=== PATIENT | male | born 1965 | race Caucasian/White ===

== ENCOUNTER 2017-07-07 08:07 | Day surgery (SDC) | payer BC ==
[~2017-07-07] VITALS: Ht 180.3 cm; Wt 95.3 kg
[~2017-07-07 08:07] MED LIST: TRAZ-28 PO
[2017-07-07 08:27] VITALS: BP 103/82
--- OUTSIDE RECORDS SUMMARY | 2017-07-07 08:27 | XMS REPORT ---
Author Author PIERRE DIAZ [facility] e[employer] Address Unknown Phone Unavailable Care Team Providers Care Laundry Agent Name Role Phone PIERRE DIAZ Unavailable Allergies No Known Allergies Problems Problem Type Condition Code Onset Dates Condition Status Problem Acute sinusitis, unspecified 461.9 Active Problem Dysfunction of Eustachian tube 381.81 Active Problem Need for prophylactic vaccination and inoculation, Influenza V04.81 Active Assessment Encounter for immunization Z23 Active Medications No Known Medications Procedures Procedure Coding System Code Date SINGLE IMMUNIZATION ADMIN CPT-4 24653 Jul 04, 2016 FLUARIX QUAD P-FREE 3 AND UP .50 2015 CPT-4 25945 Jul 04, 2016 Results No Known Results Immunizations Vaccine Administration Date FLUARIX QUAD P-FREE 3 AND UP .50 2015Jul 04, 2016 Summary Purpose eClinicalWorks Submission
--- OUTSIDE RECORDS SUMMARY | 2017-07-07 08:27 | XMS REPORT | Continuity of Care Document ---
Author Author Formerly [facility] Address Unknown Phone Unavailable Allergies Medications Problems Date Dx Coded Attending Type Code Diagnosis Diagnosed By 12/06/2013 EMILY NAVARRO PIERRE A 461.9 SINUSITIS ACUTE 12/06/2013 [employer] OFFICER, PIERRE A 461.9 SINUSITIS ACUTE 12/06/2013 [employer]JTUE [employer] RESOURCE OFFICER, PIERRE A 461.9 SINUSITIS ACUTE 06/15/2014 EMILY COMMUNITY RESOURCE OFFICER, PIERRE A 381.81 EUSTACHIAN TUBE DYSFUNCTION 06/15/2014 [employer]JTUE COMM[employer] RESOURCE OFFICER, PIERRE A 381.81 EUSTACHIAN TUBE DYSFUNCTION 06/27/2014 YASMANY DIAZ APRNYL A V04.81 FLU SHOT Procedures [place] [address] THERAPUTIC INJ SQ/IM 12/06/2013 J1040 DEPO MEDROL 80 MG INJ 12/06/2013 89083 THERAPUTIC INJ SQ/IM 06/15/2014 J1040 DEPO MEDROL 80 MG INJ 06/15/2014 Results Encounters ACCT No. Visit Date/Time Discharge Status Pt. Type Provider Facility Loc./Unit Complaint [id number] 06/27/2014 15:51:00 06/27/2014 23: 59:59 CLS Outpatient PIERRE DIAZ APRN [id number] 06/15/2014 10:05:00 06/15/2014 23: 59:59 CLS Outpatient PIERRE DIAZ APRN [id number] 12/06/2013 13:21:00 12/06/2013 23: 59:59 CLS Outpatient PIERRE DIAZ APRN
--- OUTSIDE RECORDS SUMMARY | 2017-07-07 08:27 | XMS REPORT ---
Author Author PIERRE DIAZ Organization [employer] Address Unknown Phone Unavailable Care Team Providers Care Manager Lean Name Role Phone PIERRE DIAZ CP Unavailable Allergies No Known Allergies Problems Problem Type Condition Code Onset Dates Condition Status Problem Acute sinusitis, unspecified 461.9 Active Problem Dysfunction of Eustachian tube 381.81 Active Problem Need for prophylactic vaccination and inoculation, Influenza V04.81 Active Assessment Encounter for immunization Z23 Active Medications No Known Medications Procedures Procedure Coding System Code Date SINGLE IMMUNIZATION ADMIN CPT-4 64807 Aug 29, 2015 FLUARIX QUAD (3 & UP)-GSK-2014 CPT-4 15402 Aug 29, 2015 Results No Known Results Immunizations Vaccine Administration Date FLUARIX QUAD (3 & UP)-GSK-2014Aug 29, 2015 Summary Purpose eClinicalWorks Submission
[2017-07-07] MEDS ORDERED: NS IV 500 ML 500 ML IV PRN (08:30)
--- NOTE | 2017-07-07 09:58 | History & Physicial ---
History of Present Illness History of Present Illness Reason for visit/HPI Patient is seen today in no acute distress for a screening colonoscopy. Patient states that this is his first colonoscopy. Patient has a negative family history for colon cancer. Patient denies blood in his stool as well as change in his stool caliber. The procedure was described in detail and the patient agreed to the procedure. Date of Admission Date Seen by Provider: Jul 07, 2017 Time Seen by Provider: 09:45 I consulted on this patient on 07/07/17 09:53 Attending Physician Dionte Peguero MD Consult Allergies and Home Medications Allergies Coded Allergies: No Known Drug Allergies (Unverified , 06/30/17) Home Medications Trazodone HCl 50 Mg Tablet, 50 MG PO HS, (Reported) Past Fjyaali-Sqlvjf-Vyvoio Hx Patient Social History Employed/Student: employed Alcohol Use: Past History Number of Drinks Today: 0 Recreational Drug Use: No Smoking Status: Former Smoker Former Smoker, Quit: Jun 30, 1992 Type Used: Cigarettes, Smokeless Tobacco Recent Foreign Travel: No Contact w/other who traveled: No Recent Hopitalizations: No Recent Infectious Disease Expo: No Immunizations Up To Date Date of Influenza Vaccine: May 19, 2017 Seasonal Allergies Seasonal Allergies: No Reproductive System Hx Reproductive Disorders: No Sexually Transmitted Disease: No HIV/AIDS: No Gastrointestinal Liver Disease/Jaundice, Cirrhosis HEENT Loss of Vision: Bilateral Hearing Impairment: Denies Psychosocial Behavioral Health Disorders: Depression Blood Transfusions Adverse Reaction to a Blood Tr: No (N/A) Constitutional: no symptoms reported EENTM: no symptoms reported Respiratory: no symptoms reported Cardiovascular: no symptoms reported Gastrointestinal: abdominal pain (patient states he has pain in LLQ after a workrelated injury when he was lifting a heavy object, patient believes he pulled a muscle) Skin: no symptoms reported Physical Exam Vital Signs Vital Sign - Last 12Hours 07/07/17 08:27 Temp 98.7 Pulse 66 Resp 16 B/P (MAP) 103/82 Pulse Ox 96 O2 Delivery Room Air Capillary Refill : General Appearance: No Apparent Distress, WD/WN HEENT: PERRL/EOMI Neck: Full Range of Motion Respiratory: Chest Non Tender, Lungs Clear, Normal Breath Sounds, No Accessory Muscle Use, No Respiratory Distress Cardiovascular: Regular Rate, Rhythm, No Edema, No Gallop, No JVD, No Murmur Gastrointestinal: Normal Bowel Sounds, No Organomegaly, No Pulsatile Mass, Non Tender Assessment/Plan Assessment and Plan Screening colonoscopy today. Negative family history of colon cancer. Procedure described in detail and patient in agreement. Problems: LOU HASTINGS MED STUDENT Jul 07, 2017 09:58
--- NOTE | 2017-07-07 10:01 | Conscious Sedation/ASA ---
Conscious Sedation Pre-Proced Time Reviewed: 09:52 ASA Class: 2 Airway Mallampati Classification: ([place] appropriate class) I. II. III, IV Lungs Heart ASA score ASA 1: a normal healthy patient ASA 2: a patient with a mild systemic disease (mid diabetes, controlled hypertension, obesity ASA 3: a patient with a severe systemic disease that limits activity (angina , COPD, prior Myocardial infarction) ASA 4: a patient with an incapacitating disease that is a constant threat to life (CHF, renal failure) ASA 5: a moribund patient not expected to survive 24 hrs. (ruptured aneurysm) ASA 6: a declared brain patient whose organs are being harvested. For emergent operations, add the letter E after the classification Grade 1 Sedation Plan: Discussed options with patient/fam Note The patient is an appropriate candidate to undergo the planned procedure, sedation, and anesthesia. The patient immediately re-assessed prior to indication. MARY ELLEN HERNANDEZ MD Jul 07, 2017 10:01 am
[2017-07-07] MEDS ORDERED: fentaNYL INJECTION 100 MCG/2 ML AMP ONE (10:06)
[2017-07-07] MEDS ORDERED: MIDAZOLAM 2 MG/2 ML (VERSED) VIAL ONE ×3 (10:07)
[2017-07-07] MEDS: fentaNYL INJECTION 100 MCG/2 ML AMP IVP PRN ×2 (10:25→10:28)
[2017-07-07] MEDS: MIDAZOLAM 2 MG/2 ML (VERSED) VIAL IVP PRN ×3 (10:26→10:32)
--- NOTE | 2017-07-07 10:46 | Endo Procedure Record ---
Endo Procedure Report Date of Procedure Jul 07, 2017 Surgeon (s) MARY ELLEN HERNANDEZ MD Post Procedure/Op Diagnosis sigmoid diverticulosis Procedure Performed colonoscopy to cecum Description of Procedure Anesthesia Type: Conscious Sedation Specimen(s) collected/removed none Description of the Procedure Indication for procedure: This gentleman came in for screening colonoscopy. He denied any family history of colon cancer. Informed consent was obtained after reviewing the procedure in detail. Description of the procedure: She was placed in left lateral decubitus position and his vital signs were monitored. Conscious sedation was achieved using Versed and fentanyl. Digital rectal examination was unremarkable. The colonoscope was then introduced in the rectum and advanced all the way up to cecum. The quality of bowel preparation was rather sub-optimal. The scope was then withdrawn slowly and the mucosa examined in a systematic fashion. Findings: Sigmoid diverticulosis He tolerated the procedure well and was taken back to the nursing area in a stable condition. Impression: Screening colonoscopy. No polyps. Uncomplicated sigmoid diverticulosis. No relevant family history. Recommend repeating in 10 years. Copies To: ARNOLD MCCLURE MD, XAVIER M MD Jul 07, 2017 10:46 am
--- NOTE | 2017-07-07 10:47 | Discharge Inst-Simple/Standard ---
Discharge Inst-Standard Discharge Medications New, Converted or Re-Newed RX: Other Patient Instructions/Follow Up Plan of Care/Instructions/FU: please provide printed information on diverticulosis. Repeat colonoscopy in 10 years Activity as Tolerated: Yes Discharge Diet: No Restrictions MARY ELLEN HERNANDEZ MD Jul 07, 2017 10:47 am
[2017-07-07 10:55] VITALS: BP 137/86
[2017-07-07 11:15] VITALS: BP 137/97
[2017-07-07 11:20] VITALS: BP 137/97
== END 2017-07-07 11:20 | disposition home or self-care (01) ==
LOC: ENDO 08:07
PROVIDERS: ATTEND Surgery
DX: Z12.11 Encounter for screening for malignant neoplasm of colon (principal); K57.30 Diverticulosis of large intestine without perforation or abscess without bleeding; F32.9 Major depressive disorder, single episode, unspecified; Z87.891 Personal history of nicotine dependence; K74.60 Unspecified cirrhosis of liver